=== PATIENT | male | born 1950 | race Caucasian/White ===

== ENCOUNTER 2017-05-22 03:57 | Emergency (ER) | payer OTHER ==
--- NOTE | 2017-05-22 08:00 | DIAGNOSTIC IMAGING REPORT ---
PROCEDURE: CT ABDOMEN/PELVIS W/O CONTRAST INDICATION: ABDOMINAL PAIN TECHNIQUE: Noncontrast axial images were obtained of the entire abdomen and pelvis with sagittal and coronal reformations. COMPARISON: None. FINDINGS: ABDOMEN: Mild right bibasilar scarring. Normal heart size. Coronary atherosclerosis. Liver, gallbladder, pancreas and spleen have a normal appearance. Severe atherosclerosis with a 4.2 cm infrarenal abdominal aortic aneurysm. Small ascites around the liver and spleen. Bilateral thickening of the adrenal glands. Small left renal cyst. Normal right kidney. No renal calculi or hydronephrosis. Nonspecific bowel gas pattern. PELVIS: Status post appendectomy. Mild sigmoid diverticulosis with mild adjacent inflammatory changes and small amount of extraluminal air. Enlarged prostate (5 cm) with central calcifications. Bladder wall thickening which may be due to decompression versus cystitis. Small ascites. 3.2 cm right common iliac 1.6 cm left internal iliac artery aneurysms. Severe calcific atherosclerosis. Severe L3-4 L5-S1 disc space narrowing. IMPRESSION: 1. Mild sigmoid diverticulosis with mild adjacent inflammatory changes and small amount of extraluminal air consistent with diverticulitis. There is no abscess. 2. Small ascites 3. 4.2 cm infrarenal abdominal aortic, 3.2 cm right common iliac and 1.6 cm left internal iliac artery aneurysms 4. Appendectomy 5. Enlarged prostate 6. Bladder wall thickening which may be due to decompression versus cystitis. Correlate clinically 7. Results discussed with Dr. Hurst All CT scans at this facility use dose modulation, iterative reconstruction, and/or weight-based dosing when appropriate to reduce radiation dose to as low as reasonably achievable.
--- NOTE | 2017-05-22 08:24 | ED NURSING NOTES ---
Clinical Report - Nurses [place] [facility] [address] [place] [address] 05/22/2017 3:58 Patient: LELE DUQUE TRIAGE Triage time 04:02. Acuity: LEVEL 4. Chief Complaint: ABDOMINAL PAIN and NAUSEA. Alert. --04:04 Shandra Jaffe R.N. 04:02 05/22/17. BP: 130/78. HR: 85. RR: 15. O2 saturation: 94% on room air. Temp: 99.1 F (oral). Pain level now: 06/08. --04:04 Shandra Jaffe R.N. Weight: 90.7 kg stated. Height/Length: 72 inches Per Patient. BMI: 27.1. --04:02 Shandra Jaffe R.N. Medications BusPIRone HCl Oral (Tablet 10 mg) 2 tablets, 2x a day. Carvedilol Oral (Tablet 25 mg) 2 tablets, twice daily. Lisinopril Oral 40 mg, daily. Lovastatin Oral 40mg, daily. Potassium Oral 10meq, 2x a day. --04:08 Shandra Jaffe R.N. Isosorbide Mononitrate Oral 30 mg, daily. --04:10 Shandra Jaffe R.N. Finasteride Oral (Tablet 5 mg) 1 tablet, daily. --04:11 Shandra Jaffe R.N. Vitamin D Oral (Capsule 1000 unit) 2 capsules, daily. --04:11 Shandra Jaffe R.N. Alfuzosin HCl ER Oral (Tablet Extended Release 24 Hour 10 mg) 1 tablet, daily. --04:12 Shandra Jaffe R.N. HydrALAZINE HCl Oral (Tablet 10 mg) 1 tablet, three times daily. --04:12 Shandra Jaffe R.N. Allergies Codeine. --04:08 Shandra Jaffe R.N. History Arrived by EMS. Historian: patient. Primary physician ([place] Josue Russell). Onset. (about 4 days ago (worse since last night)). 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 PAST MEDICAL HX: Immunizations: status is unknown. SOCIAL HX: Never smoker. History of drug use: marijuana. No alcohol use. --04:04 Shandra Jaffe R.N. No constipation. --04:06 Shandra Jaffe R.N. PROBLEMS: Prostatic Mass. Angina. Memory loss. Chronic Back Pain. Hyperlipidemia. PTSD. Hypertension. --04:03 Shandra Jaffe R.N. ADDITIONAL SURGERIES: Appendectomy. --04:03 Shandra Jaffe R.N. Interventions ID band on patient. To treatment room. --04:04 Shandra Jaffe R.N. PHYSICAL ASSESSMENT Ambulatory to room. Patient gowned. GENERAL / NEURO / PSYCH: Alert. Oriented X 4. Appears in no acute distress. RESPIRATORY: Respirations not labored. CVS: Capillary refill less than 2 seconds. SKIN: Skin is warm and dry. --04:04 Shandra Jaffe R.N. NURSING PROGRESS NOTES Head of bed elevated. Two patient identifiers checked. Call light placed in reach. Side rails up x 1. Bed placed in lowest position. Brakes of bed on. --04:05 Shadnra Jaffe R.N. Patient ready for evaluation- chart flagged. --04:05 Shandra Jaffe R.N. 04:05 05/22/2017 Site #1 started via IV in the left hand with an 20g angiocath; one attempt. Blood drawn: rainbow set. Labeled in the presence of the patient and sent to the lab. Saline lock flushed with 10 mL saline (Started by JOCELYNE Ramesh). --04:05 Shandra Jaffe R.N. 04:12 05/22/2017 Started bag #1 1000 mL IV Fluids IV NS (Saline); bolus of 500 mL over 30 minute(s) then at 125 mL/hr over 4 hour(s) via site #1 via IV pump. Allergies verified and confirmed 5 rights. IV patency established. IV site checked: no pain, redness, or swelling. IV flushed thoroughly pre- and post-medication administration. Completed per protocol. --04:12 Lulu Bacon R.N. ( urinal placed at bedside, sample requested. Pt states unable to go at this time, but aware of need.). --04:13 Shandar Jaffe R.N. 04:22 05/22/2017 Zofran (Ondansetron HCl) IVP 4 mg given over 2 minute(s) via site #1. Allergies verified and confirmed 5 rights. IV patency established. IV site checked: no pain, redness, or swelling. IV flushed thoroughly pre- and post-medication administration. IVP given by RN. --04:27 Lulu Bacon R.N. 04:31 05/22/2017 PROTONIX (Pantoprazole Sodium) IVP 80 mg given over 5 minute(s) via site #1. Allergies verified and confirmed 5 rights. IV patency established. IV site checked: no pain, redness, or swelling. IV flushed thoroughly pre- and post-medication administration. IVP given by RN. --04:31 Lulu Bacon R.N. 04:33 05/22/2017 Dilaudid (HYDROmorphone HCl PF) IVP 0.5 mg given over 2 minute(s) via site #1. Allergies verified, confirmed 5 rights and sedative warning given to the patient. IV patency established. IV site checked: no pain, redness, or swelling. IV flushed thoroughly pre- and post-medication administration. IVP given by RN. --04:33 Lulu Bacon R.N. ( pt still unable to urinate, IV rate increased, per EDMD.). --06:04 Shandra Jaffe R.N. 04:42 05/22/2017 IV Fluids IV NS via IV site #1 Rate Changed: bag #1 decreased to 125 mL/hr via IV pump. IV patency established. IV site checked: no pain, redness, or swelling. IV flushed thoroughly. --06:04 Shandra Jaffe R.N. 06:04 05/22/2017 IV Fluids IV NS via IV site #1 Rate Changed: bag #1 increased to 999 mL/hr via IV pump. IV patency established. IV site checked: no pain, redness, or swelling. IV flushed thoroughly. --06:05 Shandra Jaffe R.N. 06:35 05/22/2017 IV Fluids IV NS Discontinued: bag #1 completed. Total amount infused: 1000 mL. IV patency established. IV site checked: no pain, redness, or swelling. IV flushed thoroughly. --06:35 Shandra Jaffe R.N. Patient ID band checked for patient name and birthdate: patient confirmed urine collected with return of reyes-colored red-colored urine; sample sent to lab. Specimen labeled in the presence of the patient (collected and sent to lab by JOCELYNE Ramesh). --06:45 Shandra Jaffe R.N. 06:55. Patient transported to [place] by stretcher with tech. --06:55 Reyes Auguste, ER Tech1 0720. Care transferred and report received (received from Shandra CASANOVA). --07:50 Shefali Marques R.N. 08:25 05/22/17. BP: 131/75. HR: 67. RR: 18. O2 saturation: 97%. Temp: 98.2 F. 06:45 05/22/17. HR: 71. O2 saturation: 96%. 06:00 05/22/17. BP: 112/65. HR: 70. O2 saturation: 96%. 05:00 05/22/17. BP: 111/61. HR: 72. O2 saturation: 94%. 04:30 05/22/17. BP: 120/64. HR: 74. O2 saturation: 93%. 04:02 05/22/17. BP: 130/78. HR: 85. RR: 15. O2 saturation: 94% on room air. Temp: 99.1 F (oral). Pain level now: 06/08. --08:44 Shefali Marques R.N. DISPOSITION / DISCHARGE 08:40 05/22/2017 Site #1 removed upon discharge. Catheter intact. Pressure dressing applied. --08:45 Shefali Marques R.N. 08:25. Condition at departure: improved and stable. No learning barriers present. Discharge instructions provided and reviewed with the patient. Reviewed medication(s) dosing and course information. Prescription(s) given to the patient. Patient verbalized understanding. Written instructions provided in Finnish. The patient was discharged home and accompanied by family. He left the Emergency Department ambulatory and via private vehicle. Family member driving. --08:47 Shefali Marques R.N. 08:25 05/22/17. BP: 131/75. HR: 67. RR: 18. O2 saturation: 97%. Temp: 98.2 F. Pain level now 5/10. --08:47 Shefali Marques R.N. Locked/Released at 05/22/2017 9:23 by Shefali Marques R.N.
--- NOTE | 2017-05-22 08:24 | ED CLINICAL REPORT ---
Clinical Report - Physicians/Mid Levels [facility] [address] [place] [address] 05/22/2017 3:58 Patient: LELE DUQUE Time Seen: 04:01. Arrived- By ambulance. Historian- patient and EMS personnel. HISTORY OF PRESENT ILLNESS Chief Complaint: ABDOMINAL PAIN. This started about 4 days ago and is still present and now worse. It was gradual in onset and has been constant and waxing/waning. At its maximum, severity described as 10 / 10. When seen in the E.D., severity described as 7 / 10. It is described as sharp and it is described as located in the lower abdomen. The patient has had nausea and loss of appetite. He has had vomiting. The vomiting has occurred several times. No blood-tinged emesis or coffee-grounds emesis. REVIEW OF SYSTEMS The patient has had chills. All systems otherwise negative, except as recorded above. PAST HISTORY Primary physician (DOMINGO Russell). Medications: HydrALAZINE HCl Oral (Tablet 10 mg) 1 tablet, three times daily. Alfuzosin HCl ER Oral (Tablet Extended Release 24 Hour 10 mg) 1 tablet, daily. Vitamin D Oral (Capsule 1000 unit) 2 capsules, daily. Finasteride Oral (Tablet 5 mg) 1 tablet, daily. Isosorbide Mononitrate Oral 30 mg, daily. BusPIRone HCl Oral (Tablet 10 mg) 2 tablets, 2x a day. Carvedilol Oral (Tablet 25 mg) 2 tablets, twice daily. Lisinopril Oral 40 mg, daily. Lovastatin Oral 40mg, daily. Potassium Oral 10meq, 2x a day. Allergies: Codeine. SOCIAL HISTORY Never smoker. History of drug use: marijuana. No alcohol use. FAMILY HISTORY Denies family medical history. ADDITIONAL NOTES The nursing notes have been reviewed. PHYSICAL EXAM Vital Signs: 05/22/2017 04:02 BP: 130/78. HR: 85. RR: 15. O2 saturation: 94%. Temp: 99.1 F. Pain level now: 7/10. Have been reviewed. Appearance: Alert. Eyes: Pupils equal, round and reactive to light. ENT: Pharynx normal. Neck: Normal inspection. Neck supple. CVS: Normal heart rate and rhythm. Heart sounds normal. Respiratory: No respiratory distress. Decreased air movement. Abdomen: Soft. Moderate tenderness diffusely and in the left side of the abdomen. Bowel sounds normal. No organomegaly. No mass. Back: Normal inspection. No CVA tenderness. Skin: Skin warm and dry. Extremities: Extremities exhibit normal ROM. No calf tenderness. No lower extremity edema. LABS, X-RAYS, AND EKG Abdominal CT: IMPRESSION: 1. Mild sigmoid diverticulosis with mild adjacent inflammatory changes and small amount of extraluminal air consistent with diverticulitis. There is no abscess. 2. Small ascites 3. 4.2 cm infrarenal abdominal aortic, 3.2 cm right common iliac and 1.6 cm left internal iliac artery aneurysms 4. Appendectomy 5. Enlarged prostate 6. Bladder wall thickening which may be due to decompression versus cystitis. Correlate clinically. The study was interpreted contemporaneously by me and discussed with the radiologist. Laboratory Tests: UA-Culture if indicated: (BROOKE: 05/22/2017 06:35) ( [facility] 05/22/2017 07:06) Final results Test Result Flag Units (Reference) URINE COLOR YELLOW URINE APPEARANCE CLEAR URINE GLUCOSE NEGATIVE (NEGATIVE) URINE BILIRUBIN 1+ (NEGATIVE) URINE KETONE NEGATIVE (NEGATIVE) URINE SPECIFIC GRAVITY 1.020 (1.010-1.030) URINE PH 6.0 (5.0-8.0) URINE PROTEIN 2+ (NEGATIVE) URINE UROBILINOGEN 1.0 EU/dL (0.2-1.0) URINE NITRITE POSITIVE (NEGATIVE) URINE BLOOD TRACE-INTACT (NEGATIVE) URINE LEUK ESTERASE TRACE (NEGATIVE) URINE RBC NONE SEEN rbc/hpf (0-1) URINE WBC 10-15 wbc/hpf (0-1) URINE EPITHELIAL CELLS 0-1 EPI/hpf (0-5) URINE BACTERIA MODERATE (2+ TO 3+) (NONE SEEN) URINE COMMENT CULTURE INDICATED 1+ MUCOUSURINE CULTURES ARE SET-UP BASED ON THE FOLLOWING CRITERIA:POSITIVE NITRITEPOSITIVE LEUKOCYTE ESTERASEGREATER THAN 10 WHITE BLOOD CELLSMODERATE (2+) OR GREATER BACTERIA CBC w Diff: (BROOKE: 05/22/2017 04:10) ( [facility] 05/22/2017 06:04) Final results Test Result Flag Units (Reference) WHITE BLOOD COUNT 18.7 H K/uL (4.5-11.5) RED BLOOD COUNT 5.65 M/uL (4.50-5.90) HEMOGLOBIN 15.9 gm/dL (13.5-17.5) HEMATOCRIT 47.7 % (41.0-53.0) MEAN CELL VOLUME 84 fL (80-100) MEAN CORPUSCULAR HGB 28 pg (26-34) MEAN CORPUSCULAR HGB CONC 33 g/dL (31-37) RED CELL DISTRIBUTION WIDTH 14.0 % (11.6-14.8) PLATELET COUNT 201 K/uL (150-400) POLY % 76 H % (50-75) BAND % 13 H % (0-8) LYMPH 4 L % (25-40) MONO 5 % (3-14) EOSINOPHIL % 0 % (0-4) BASOPHIL % 0 % (0-2) METAMYELOCYTE % 0 % (0-1) MYELOCYTE 2 H % (0-1) OTHER CELL TYPE 0 Lactate, Serum: (BROOKE: 05/22/2017 04:10) ( [facility] 05/22/2017 05:28) Final results Test Result Flag Units (Reference) LACTIC ACID 1.5 mmol/L (0.4-2.0) CMP: (BROOKE: 05/22/2017 04:10) ( [facility] 05/22/2017 05:11) Final results Test Result Flag Units (Reference) GLUCOSE 135 H mg/dL (70-110) BUN 26 H mg/dL (7-18) CREATININE 1.7 H mg/dL (0.6-1.3) Estimated GFR 43.07 mL/min Estimated GFR- 52.20 mL/min Note: Persistent reduction over 3 months in eGFR<60 mL/min/1.73 m2 defines CKD. Patients with eGFR values>=60 mL/min/1.73 m2 may also have CKD if evidence ofpersistent proteinuria. Additional information may be foundat www.kidney.org. SODIUM 138 mmol/L (136-145) POTASSIUM 3.5 mmol/L (3.5-5.1) CHLORIDE 104 mmol/L (98-107) CARBON DIOXIDE 24 mmol/L (21-32) CALCIUM 8.7 mg/dL (8.5-10.1) TOTAL PROTEIN 6.4 g/dL (6.4-8.2) ALBUMIN 3.0 L g/dL (3.3-5.0) BILIRUBIN, TOTAL 2.2 H mg/dL (0.0-1.0) ALKALINE PHOSPHATASE 64 U/L (46-116) AST (SGOT) 28 U/L (15-37) ALT (SGPT) 28 U/L (12-78) LIPASE 147 U/L (73-393) AMYLASE 55 U/L (25-115) . PROGRESS AND PROCEDURES Course of Care: Patient is stable. Patient/family counseled. Old medical records reviewed. Disposition: Discharged. Condition: stable. CLINICAL IMPRESSION Acute diverticulitis. Acute urinary tract infection. INSTRUCTIONS No driving or operating machinery while taking medication. Sedative medication was given during your visit. Drink plenty of fluids. Warnings: Further evaluation is necessary. GENERAL WARNINGS: Return or contact your physician immediately if your condition worsens or changes unexpectedly, if not improving as expected, or if other problems arise. SPECIFICALLY, return for continued pain, fever, vomiting, inability to keep fluids down or blood in diarrhea; or if there is no improvement in the pain. Your Current Medications: CONTINUE TAKING THE FOLLOWING MEDICATIONS: Alfuzosin HCl ER Oral : Tablet Extended Release 24 Hour 10 mg, 1 tablet daily. BusPIRone HCl Oral : Tablet 10 mg, 2 tablets 2x a day. Carvedilol Oral : Tablet 25 mg, 2 tablets twice daily. Finasteride Oral : Tablet 5 mg, 1 tablet daily. HydrALAZINE HCl Oral : Tablet 10 mg, 1 tablet three times daily. Isosorbide Mononitrate Oral : 30 mg daily. Lisinopril Oral : 40 mg daily. Lovastatin Oral : 40mg daily. Potassium Oral : 10meq 2x a day. Vitamin D Oral : Capsule 1000 unit, 2 capsules daily. Prescription Medications: Hydrocodone/APAP 5mg/325mg: take 1 to 2 orally every 6 hours as needed for pain. Dispense fifteen (15). No refills. Cipro 500 mg: take 1 tab orally every 12 hours for 10 days. Dispense twenty (20). No refills. Substitution is permissible. Flagyl 500 mg: Take 1 tablet orally every 8 hours for 10 days. No refill. Substitution is permissible Follow-up: Follow up with your doctor Thursday in three days. Call for an appointment. Understanding of the discharge instructions verbalized by patient. (Electronically signed by Gaetano Hurst MD 05/22/2017 22:07)
--- NOTE | 2017-05-22 08:24 | ED NURSING NOTES ---
Clinical Report - Nurses [place] [facility] [address] [place] [address] 05/22/2017 3:58 Patient: LELE DUQUE TRIAGE Triage time 04:02. Acuity: LEVEL 4. Chief Complaint: ABDOMINAL PAIN and NAUSEA. Alert. --04:04 Shandra Jaffe R.N. 04:02 05/22/17. BP: 130/78. HR: 85. RR: 15. O2 saturation: 94% on room air. Temp: 99.1 F (oral). Pain level now: 06/08. --04:04 Shandra Jaffe R.N. Weight: 90.7 kg stated. Height/Length: 72 inches Per Patient. BMI: 27.1. --04:02 Shandra Jaffe R.N. Medications BusPIRone HCl Oral (Tablet 10 mg) 2 tablets, 2x a day. Carvedilol Oral (Tablet 25 mg) 2 tablets, twice daily. Lisinopril Oral 40 mg, daily. Lovastatin Oral 40mg, daily. Potassium Oral 10meq, 2x a day. --04:08 Shandra Jaffe R.N. Isosorbide Mononitrate Oral 30 mg, daily. --04:10 Shandra Jaffe R.N. Finasteride Oral (Tablet 5 mg) 1 tablet, daily. --04:11 Shandra Jaffe R.N. Vitamin D Oral (Capsule 1000 unit) 2 capsules, daily. --04:11 Shandra Jaffe R.N. Alfuzosin HCl ER Oral (Tablet Extended Release 24 Hour 10 mg) 1 tablet, daily. --04:12 Shandra Jaffe R.N. HydrALAZINE HCl Oral (Tablet 10 mg) 1 tablet, three times daily. --04:12 Shandra Jaffe R.N. Allergies Codeine. --04:08 Shandra Jaffe R.N. History Arrived by EMS. Historian: patient. Primary physician ([place] Josue Russell). Onset. (about 4 days ago (worse since last night)). 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 PAST MEDICAL HX: Immunizations: status is unknown. SOCIAL HX: Never smoker. History of drug use: marijuana. No alcohol use. --04:04 Shandra Jaffe R.N. No constipation. --04:06 Shandra Jaffe R.N. PROBLEMS: Prostatic Mass. Angina. Memory loss. Chronic Back Pain. Hyperlipidemia. PTSD. Hypertension. --04:03 Shandra Jaffe R.N. ADDITIONAL SURGERIES: Appendectomy. --04:03 Shandra Jaffe R.N. Interventions ID band on patient. To treatment room. --04:04 Shandra Jaffe R.N. PHYSICAL ASSESSMENT Ambulatory to room. Patient gowned. GENERAL / NEURO / PSYCH: Alert. Oriented X 4. Appears in no acute distress. RESPIRATORY: Respirations not labored. CVS: Capillary refill less than 2 seconds. SKIN: Skin is warm and dry. --04:04 Shandra Jaffe R.N. NURSING PROGRESS NOTES Head of bed elevated. Two patient identifiers checked. Call light placed in reach. Side rails up x 1. Bed placed in lowest position. Brakes of bed on. --04:05 Shandra Jaffe R.N. Patient ready for evaluation- chart flagged. --04:05 Shandra Jaffe R.N. 04:05 05/22/2017 Site #1 started via IV in the left hand with an 20g angiocath; one attempt. Blood drawn: rainbow set. Labeled in the presence of the patient and sent to the lab. Saline lock flushed with 10 mL saline (Started by JOCELYNE Ramesh). --04:05 Shandra Jaffe R.N. 04:12 05/22/2017 Started bag #1 1000 mL IV Fluids IV NS (Saline); bolus of 500 mL over 30 minute(s) then at 125 mL/hr over 4 hour(s) via site #1 via IV pump. Allergies verified and confirmed 5 rights. IV patency established. IV site checked: no pain, redness, or swelling. IV flushed thoroughly pre- and post-medication administration. Completed per protocol. --04:12 Lulu Bacon R.N. ( urinal placed at bedside, sample requested. Pt states unable to go at this time, but aware of need.). --04:13 Shandra Jaffe R.N. 04:22 05/22/2017 Zofran (Ondansetron HCl) IVP 4 mg given over 2 minute(s) via site #1. Allergies verified and confirmed 5 rights. IV patency established. IV site checked: no pain, redness, or swelling. IV flushed thoroughly pre- and post-medication administration. IVP given by RN. --04:27 Lulu Bacon R.N. 04:31 05/22/2017 PROTONIX (Pantoprazole Sodium) IVP 80 mg given over 5 minute(s) via site #1. Allergies verified and confirmed 5 rights. IV patency established. IV site checked: no pain, redness, or swelling. IV flushed thoroughly pre- and post-medication administration. IVP given by RN. --04:31 Lulu Bacon R.N. 04:33 05/22/2017 Dilaudid (HYDROmorphone HCl PF) IVP 0.5 mg given over 2 minute(s) via site #1. Allergies verified, confirmed 5 rights and sedative warning given to the patient. IV patency established. IV site checked: no pain, redness, or swelling. IV flushed thoroughly pre- and post-medication administration. IVP given by RN. --04:33 Lulu Bacon R.N. ( pt still unable to urinate, IV rate increased, per EDMD.). --06:04 Shandra Jaffe R.N. 04:42 05/22/2017 IV Fluids IV NS via IV site #1 Rate Changed: bag #1 decreased to 125 mL/hr via IV pump. IV patency established. IV site checked: no pain, redness, or swelling. IV flushed thoroughly. --06:04 Shandra Jaffe R.N. 06:04 05/22/2017 IV Fluids IV NS via IV site #1 Rate Changed: bag #1 increased to 999 mL/hr via IV pump. IV patency established. IV site checked: no pain, redness, or swelling. IV flushed thoroughly. --06:05 Shandra Jaffe R.N. 06:35 05/22/2017 IV Fluids IV NS Discontinued: bag #1 completed. Total amount infused: 1000 mL. IV patency established. IV site checked: no pain, redness, or swelling. IV flushed thoroughly. --06:35 Shandra Jaffe R.N. Patient ID band checked for patient name and birthdate: patient confirmed urine collected with return of reyes-colored red-colored urine; sample sent to lab. Specimen labeled in the presence of the patient (collected and sent to lab by JOCELYNE Ramesh). --06:45 Shandra Jaffe R.N. 06:55. Patient transported to [place] by stretcher with tech. --06:55 Reyes Auguste, ER Tech1 0720. Care transferred and report received (received from Shandra CASANOVA). --07:50 Shefali Marques R.N. 08:25 05/22/17. BP: 131/75. HR: 67. RR: 18. O2 saturation: 97%. Temp: 98.2 F. 06:45 05/22/17. HR: 71. O2 saturation: 96%. 06:00 05/22/17. BP: 112/65. HR: 70. O2 saturation: 96%. 05:00 05/22/17. BP: 111/61. HR: 72. O2 saturation: 94%. 04:30 05/22/17. BP: 120/64. HR: 74. O2 saturation: 93%. 04:02 05/22/17. BP: 130/78. HR: 85. RR: 15. O2 saturation: 94% on room air. Temp: 99.1 F (oral). Pain level now: 06/08. --08:44 Shefali Marques R.N. DISPOSITION / DISCHARGE 08:40 05/22/2017 Site #1 removed upon discharge. Catheter intact. Pressure dressing applied. --08:45 Shefali Marques R.N. 08:25. Condition at departure: improved and stable. No learning barriers present. Discharge instructions provided and reviewed with the patient. Reviewed medication(s) dosing and course information. Prescription(s) given to the patient. Patient verbalized understanding. Written instructions provided in Grenadian. The patient was discharged home and accompanied by family. He left the Emergency Department ambulatory and via private vehicle. Family member driving. --08:47 Shefali Marques R.N. 08:25 05/22/17. BP: 131/75. HR: 67. RR: 18. O2 saturation: 97%. Temp: 98.2 F. Pain level now 5/10. --08:47 Shefali Marques R.N. Locked/Released at 05/22/2017 9:23 by Shefali Marques R.N.
--- NOTE | 2017-05-22 08:24 | ED ORDER SUMMARY ---
..... Patient: LELE DUQUE OrderSheet [facility] VisitID: [id number] [place] [address] 66y, M Registration Date/Time: 05/22/2017 ORDER SHEET Weight: 90.7 kg (stated) Allergies: Codeine GENERAL ORDERS: CBC w Diff Urgent (04:02 05/22/2017 Darian FERGUSON) (Ack 4:04 AMcQuoid ER Tech1) (4:13 AMcQuoid ER Tech1) CMP Urgent (04:02 05/22/2017 Darian FERGUSON) (Ack 4:04 AMcQuoid ER Tech1) (4:13 AMcQuoid ER Tech1) UA-Culture if indicated Urgent (04:02 05/22/2017 Darian FERGUSON) (Ack 4:04 AMcQuoid ER Tech1) (6:44 RCollier R.N.) Amylase Urgent (04:02 05/22/2017 Darian FERGUSON) (Ack 4:04 AMcQuoid ER Tech1) (4:13 AMcQuoid ER Tech1) Lipase Urgent (04:02 05/22/2017 Darian FERGUSON) (Ack 4:04 AMcQuoid ER Tech1) (4:13 AMcQuoid ER Tech1) Blood Culture (No) (N/A) Urgent (04:08 05/22/2017 Darian FERGUSON) (Ack 4:13 AMcQuoid ER Tech1) (Collected 4:51 RMarsden R.N.) (4:51 AMcQuoid ER Tech1) Lactate, Serum Urgent (04:09 05/22/2017 Darian FERGUSON) (Ack 4:13 AMcQuoid ER Tech1) (Collected 4:51 RMarsden R.N.) (4:51 AMcQuoid ER Tech1) CT Abd/Pel w Cont (No) (See report) Urgent (06:46 05/22/2017 Darian FERGUSON) (6:47 Darian FERGUSON) (Cancelled: Other6:47 Darian FERGUSON) CT Abd/Pel wo Cont Urgent (06:47 05/22/2017 Darian FERGUSON) (Ack 6:54 AMcQuoid ER Tech1) (6:58 RCollier R.N.) MEDICATION ORDERS: IV FLUIDS: IV NS : initial bolus 500 mL (1000 mL/hr), then 125 mL/hr for 4h (NOW); Urgent (04:01 05/22/2017 Darian FERGUSON) (Ack 4:06 RCollier R.N.) (4:12 RMarsden R.N.) Zofran IV 4 mg (NOW) (04:07 05/22/2017 Darian FERGUSON) (Ack 4:14 RMarsden R.N.) (4:27 RMarsden R.N.) Protonix IVP 80mg 80 mg (Mix in NS 20ml over 4min) (04:08 05/22/2017 Darian FERGUSON) (Ack 4:14 RMarsden R.N.) (4:31 RMarsden R.N.) Dilaudid IV 0.5 mg (HIGH ALERT MEDICATION, NOW) (04:15 05/22/2017 Darian FERGUSON) (4:33 RMarsden R.N.) ORDER SHEET NOTES: [Electronically signed by Shefali Marques R.N. (09:05/22/2017)] [Electronically signed by Gaetano Hurst MD (22:07 05/22/2017)] [Electronically locked/signed by Shefali Marques R.N. (:05/22/2017)]
--- NOTE | 2017-05-22 08:24 | ED ORDER SUMMARY ---
..... Patient: LELE DUQUE OrderSheet [facility] VisitID: [id number] [place] [address] 66y, M Registration Date/Time: 05/22/2017 ORDER SHEET Weight: 90.7 kg (stated) Allergies: Codeine GENERAL ORDERS: CBC w Diff Urgent (04:02 05/22/2017 Darian FERGUSON) (Ack 4:04 AMcQuoid ER Tech1) (4:13 AMcQuoid ER Tech1) CMP Urgent (04:02 05/22/2017 Darian FERGUSON) (Ack 4:04 AMcQuoid ER Tech1) (4:13 AMcQuoid ER Tech1) UA-Culture if indicated Urgent (04:02 05/22/2017 Darian FERGUSON) (Ack 4:04 AMcQuoid ER Tech1) (6:44 RCollier R.N.) Amylase Urgent (04:02 05/22/2017 Darian FERGUSON) (Ack 4:04 AMcQuoid ER Tech1) (4:13 AMcQuoid ER Tech1) Lipase Urgent (04:02 05/22/2017 Darian FERGUSON) (Ack 4:04 AMcQuoid ER Tech1) (4:13 AMcQuoid ER Tech1) Blood Culture (No) (N/A) Urgent (04:08 05/22/2017 Darian FERGUSON) (Ack 4:13 AMcQuoid ER Tech1) (Collected 4:51 RMarsden R.N.) (4:51 AMcQuoid ER Tech1) Lactate, Serum Urgent (04:09 05/22/2017 Darian FERGUSON) (Ack 4:13 AMcQuoid ER Tech1) (Collected 4:51 RMarsden R.N.) (4:51 AMcQuoid ER Tech1) CT Abd/Pel w Cont (No) (See report) Urgent (06:46 05/22/2017 Darian FERGUSON) (6:47 Darian FERGUSON) (Cancelled: Other6:47 Darian FERGUSON) CT Abd/Pel wo Cont Urgent (06:47 05/22/2017 Darian FERGUSON) (Ack 6:54 AMcQuoid ER Tech1) (6:58 RCollier R.N.) MEDICATION ORDERS: IV FLUIDS: IV NS : initial bolus 500 mL (1000 mL/hr), then 125 mL/hr for 4h (NOW); Urgent (04:01 05/22/2017 Darian FERGUSON) (Ack 4:06 RCollier R.N.) (4:12 RMarsden R.N.) Zofran IV 4 mg (NOW) (04:07 05/22/2017 Darian FERGUSON) (Ack 4:14 RMarsden R.N.) (4:27 RMarsden R.N.) Protonix IVP 80mg 80 mg (Mix in NS 20ml over 4min) (04:08 05/22/2017 Darian FERGUSON) (Ack 4:14 RMarsden R.N.) (4:31 RMarsden R.N.) Dilaudid IV 0.5 mg (HIGH ALERT MEDICATION, NOW) (04:15 05/22/2017 Darian FERGUSON) (4:33 RMarsden R.N.) ORDER SHEET NOTES: [Electronically signed by Shefali Marques R.N. (09:05/22/2017)] [Electronically signed by Gaetano Hurst MD (22:07 05/22/2017)] [Electronically locked/signed by Shefali Marques R.N. (:05/22/2017)]
--- NOTE | 2017-05-22 22:07 | ED MAR SUMMARY ---
..... Medication Administration Record [facility] [address] [place] [address] Patient: LELE DUQUE Visit ID: [id number] 66y, M Weight: 90.7 kg Height/Length: 72 in BMI: 27.1 ALLERGIES: Codeine Start 04:12 05/22/2017 Lulu Bacon R.N., Stop 06:35 05/22/2017 Shandra Jaffe R.N. Medication Administered: IV NS (SALINE), Dose: IV Fluids over 4 hour(s), Rate: 125 mL/hr, Bolus: 500 mL over 30 minute(s), Dispensed: 1000 mL bag, Site: #1 left hand. Medication Ordered: IV NS : initial bolus 500 mL (1000 mL/hr), then 125 mL/hr for 4h (NOW); Urgent. Given 04:22 05/22/2017 Lulu Bacon R.N. Medication Administered: ZOFRAN [IVP] (ONDANSETRON HCL), Dose: 4 mg IVP over 2 minute(s), Site: #1 left hand. Medication Ordered: Zofran IV 4 mg (NOW). Given 04:31 05/22/2017 Lulu Bacon R.N. Medication Administered: PROTONIX [IVP] (PANTOPRAZOLE SODIUM), Dose: 80 mg IVP over 5 minute(s), Site: #1 left hand. Medication Ordered: Protonix IVP 80mg 80 mg (Mix in NS 20ml over 4min). Given 04:33 05/22/2017 Lulu Bacon R.N. Medication Administered: DILAUDID [IVP] (HYDROMORPHONE HCL PF), Dose: 0.5 mg IVP over 2 minute(s), Site: #1 left hand. Medication Ordered: Dilaudid IV 0.5 mg (HIGH ALERT MEDICATION, NOW).
--- NOTE | 2017-05-22 22:07 | ED MED RECONCILIATION SUMMARY ---
Patient: LELE DUQUE Medication Reconciliation Report [facility] VisitID: [id number] [place] [address] 66y, M Registration Date/Time: 05/22/2017 Weight: 90.7 kg Height/Length: 72 in. BMI: 27.1 ALLERGIES: Codeine The patient's Home Medications are listed below: CONTINUE TAKING THE FOLLOWING MEDICATIONS: Alfuzosin HCl ER Oral (10 mg) 1 tablet, daily BusPIRone HCl Oral (10 mg) 2 tablets, 2x a day Carvedilol Oral (25 mg) 2 tablets, twice daily Finasteride Oral (5 mg) 1 tablet, daily HydrALAZINE HCl Oral (10 mg) 1 tablet, three times daily Isosorbide Mononitrate Oral 30 mg, daily Lisinopril Oral 40 mg, daily Lovastatin Oral 40mg, daily Potassium Oral 10meq, 2x a day Vitamin D Oral (1000 unit) 2 capsules, daily The source(s) of the original Home Medication information: Not obtained. The following Medications were given to the patient in the Emergency Department: IV NS IV Fluids bolus 500 mL over 30 minute(s), then 125 mL/hr, administered: 05/22/2017 4:12:00 AM Zofran [IVP] IVP 4 mg, administered: 05/22/2017 4:22:00 AM PROTONIX [IVP] IVP 80 mg, administered: 05/22/2017 4:31:00 AM Dilaudid [IVP] IVP 0.5 mg, administered: 05/22/2017 4:33:00 AM The following Medications were prescribed to the patient: Hydrocodone/APAP 5mg/325mg: take 1 to 2 orally every 6 hours as needed for pain. Dispense fifteen (15). No refills. -- Gaetano Hurst MD Cipro 500 mg: take 1 tab orally every 12 hours for 10 days. Dispense twenty (20). No refills. Substitution is permissible. -- Gaetano Hurst MD Flagyl 500 mg: Take 1 tablet orally every 8 hours for 10 days. No refill. Substitution is permissible -- Gaetano Hurst MD
--- NOTE | 2017-05-22 22:07 | ED MED RECONCILIATION SUMMARY ---
Patient: LELE DUQUE Medication Reconciliation Report [facility] VisitID: [id number] [place] [address] 66y, M Registration Date/Time: 05/22/2017 Weight: 90.7 kg Height/Length: 72 in. BMI: 27.1 ALLERGIES: Codeine The patient's Home Medications are listed below: CONTINUE TAKING THE FOLLOWING MEDICATIONS: Alfuzosin HCl ER Oral (10 mg) 1 tablet, daily BusPIRone HCl Oral (10 mg) 2 tablets, 2x a day Carvedilol Oral (25 mg) 2 tablets, twice daily Finasteride Oral (5 mg) 1 tablet, daily HydrALAZINE HCl Oral (10 mg) 1 tablet, three times daily Isosorbide Mononitrate Oral 30 mg, daily Lisinopril Oral 40 mg, daily Lovastatin Oral 40mg, daily Potassium Oral 10meq, 2x a day Vitamin D Oral (1000 unit) 2 capsules, daily The source(s) of the original Home Medication information: Not obtained. The following Medications were given to the patient in the Emergency Department: IV NS IV Fluids bolus 500 mL over 30 minute(s), then 125 mL/hr, administered: 05/22/2017 4:12:00 AM Zofran [IVP] IVP 4 mg, administered: 05/22/2017 4:22:00 AM PROTONIX [IVP] IVP 80 mg, administered: 05/22/2017 4:31:00 AM Dilaudid [IVP] IVP 0.5 mg, administered: 05/22/2017 4:33:00 AM The following Medications were prescribed to the patient: Hydrocodone/APAP 5mg/325mg: take 1 to 2 orally every 6 hours as needed for pain. Dispense fifteen (15). No refills. -- Gaetano Hurst MD Cipro 500 mg: take 1 tab orally every 12 hours for 10 days. Dispense twenty (20). No refills. Substitution is permissible. -- Gaetano Hurst MD Flagyl 500 mg: Take 1 tablet orally every 8 hours for 10 days. No refill. Substitution is permissible -- Gaetano Hurst MD
--- NOTE | 2017-05-22 22:07 | ED MAR SUMMARY ---
..... Medication Administration Record [facility] [address] [address] Patient: LELE DUQUE Visit ID: [id number] 66y, M Weight: 90.7 kg Height/Length: 72 in BMI: 27.1 ALLERGIES: Codeine Start 04:12 05/22/2017 Lulu Bacon R.N., Stop 06:35 05/22/2017 Shandra Jaffe R.N. Medication Administered: IV NS (SALINE), Dose: IV Fluids over 4 hour(s), Rate: 125 mL/hr, Bolus: 500 mL over 30 minute(s), Dispensed: 1000 mL bag, Site: #1 left hand. Medication Ordered: IV NS : initial bolus 500 mL (1000 mL/hr), then 125 mL/hr for 4h (NOW); Urgent. Given 04:22 05/22/2017 Lulu Bacon R.N. Medication Administered: ZOFRAN [IVP] (ONDANSETRON HCL), Dose: 4 mg IVP over 2 minute(s), Site: #1 left hand. Medication Ordered: Zofran IV 4 mg (NOW). Given 04:31 05/22/2017 Lulu Bacon R.N. Medication Administered: PROTONIX [IVP] (PANTOPRAZOLE SODIUM), Dose: 80 mg IVP over 5 minute(s), Site: #1 left hand. Medication Ordered: Protonix IVP 80mg 80 mg (Mix in NS 20ml over 4min). Given 04:33 05/22/2017 Lulu Bacon R.N. Medication Administered: DILAUDID [IVP] (HYDROMORPHONE HCL PF), Dose: 0.5 mg IVP over 2 minute(s), Site: #1 left hand. Medication Ordered: Dilaudid IV 0.5 mg (HIGH ALERT MEDICATION, NOW).
--- NOTE | 2017-05-22 22:07 | ED DISCHARGE INSTRUCTIONS ---
Patient: LELE DUQUE General Instructions [facility] VisitID: [id number] [place] [address] 66y, M Registration Date/Time: 05/22/2017 Acute diverticulitis. Acute urinary tract infection. INSTRUCTIONS No driving or operating machinery while taking medication. Sedative medication was given during your visit. Drink plenty of fluids. Warnings: Further evaluation is necessary. GENERAL WARNINGS: Return or contact your physician immediately if your condition worsens or changes unexpectedly, if not improving as expected, or if other problems arise. SPECIFICALLY, return for continued pain, fever, vomiting, inability to keep fluids down or blood in diarrhea; or if there is no improvement in the pain. Your Current Medications: CONTINUE TAKING THE FOLLOWING MEDICATIONS: Alfuzosin HCl ER Oral : Tablet Extended Release 24 Hour 10 mg, 1 tablet daily. BusPIRone HCl Oral : Tablet 10 mg, 2 tablets 2x a day. Carvedilol Oral : Tablet 25 mg, 2 tablets twice daily. Finasteride Oral : Tablet 5 mg, 1 tablet daily. HydrALAZINE HCl Oral : Tablet 10 mg, 1 tablet three times daily. Isosorbide Mononitrate Oral : 30 mg daily. Lisinopril Oral : 40 mg daily. Lovastatin Oral : 40mg daily. Potassium Oral : 10meq 2x a day. Vitamin D Oral : Capsule 1000 unit, 2 capsules daily. Prescription Medications: Hydrocodone/APAP 5mg/325mg: take 1 to 2 orally every 6 hours as needed for pain. Dispense fifteen (15). No refills. Cipro 500 mg: take 1 tab orally every 12 hours for 10 days. Dispense twenty (20). No refills. Substitution is permissible. Flagyl 500 mg: Take 1 tablet orally every 8 hours for 10 days. No refill. Substitution is permissible Follow-up: Follow up with your doctor Thursday in three days. Call for an appointment. Understanding of the discharge instructions verbalized by patient. ADDITIONAL INFORMATION Diverticulitis Some people develop pouches along the wall of the colon as they get older. The pouches,called diverticuli, usually cause no symptoms. If the pouches become blocked, an infection may occur known as diverticulitis. This causes lower abdominal pain and fever. If not treated, it can become a serious condition, causing an abscess to form inside the pouch. The abscess may block the instestinal tract even or rupture, spreading infection throughout the abdomen. When treatment is started early, oral antibiotics alone may be enough to cure diverticulitis. This method is tried first. However, if you do not improve or if your condition worsens while you are trying oral antibiotics, it will be necessary to admit you to the hospital for IV antibiotics. Severe cases may require surgery. Home care The following guidelines will help you care for your diverticulitis at home: During the acute illness, rest and follow a low-fiber diet: Foods to Include: flake cereal, mashed potatoes, pancakes, waffles, pasta, white bread, rice, applesauce, bananas, eggs, meat, fish, poultry, tofu, cooked vegetables. Take antibiotics exactly as directed. Do not miss any doses or stop taking the medication, even if you feel better. Monitor your temperature and report any rising temperature to your doctor. Preventing future attacks Once you have had an episode of diverticulitis, you are at risk of having a recurrence. After you have recovered from this episode, you may be able to reduce your risk by eating a high-fiber diet (2035 gm/day of fiber). This cleans out the colon pouches that already exist and prevent new ones from forming. Foods high in fiber includes fresh fruits and edible peelings, raw or lightly cooked vegetables, whole grain cereals and breads, dried beans and peas, bran. Follow-up care Follow up with your doctor as advised or sooner if you are not improving in the nexttwo days. When to seek medical care Get prompt medical attention if any of the following occur: Fever of 100.4F (38C) or higher, or as directed by your health care provider Repeated vomiting or swelling of the abdomen Weakness, dizziness, light-headedness Increasing abdominal pain that becomes severe or spreads to your back Pain that moves to the right lower abdomen Rectal bleeding (red, black or maroon color of the stools) Unexpected vaginal bleeding Bladder Infection,Male (Adult) A bladder infection ("cystitis" or "UTI") usually causes a constant urge to urinate, and a burning when passing urine. Urine may be cloudy, smelly or dark. There may be also be pain in the lower abdomen. Cystitis in males is not common. It may be caused by a partial blockage in the urinary system that keeps the bladder from emptying completely. This is most often related to an enlarged prostate gland. Home Care: Drink lots of fluids (at least 6-8 glasses a day). This will flush the bacteria out of your bladder. Avoid sexual intercourse until your symptoms are gone. Avoid caffeine, alcohol, and spicy foods. They could irritate the bladder. A bladder infection is treated with antibiotics. You may also be given Pyridium (generic - phenazopyridine) to reduce burning with urination. This will cause urine to become a bright orange color, which can stain clothing. Follow Up with your doctor or this facility if ALL symptoms have not cleared within five days. It is important to keep your follow up appointment to discuss with your doctor the need for further tests of the urinary tract. Get Prompt Medical Attention if any of the following occur: Fever of 100.4F (38C) or higher, or as directed by your healthcare provider No improvement by the third day of treatment Increasing back or abdominal pain Repeated vomiting; unable to keep medicine down Weakness, dizziness or fainting Hydrocodone Bitartrate, Acetaminophen Oral tablet What is this medicine? ACETAMINOPHEN; HYDROCODONE (a set a FELIZ minesh fen; jesus droe KOE done) is a pain reliever. It is used to treat mild to moderate pain. How should I use this medicine? Take this medicine by mouth. Swallow it with a full glass of water. Follow the directions on the prescription label. If the medicine upsets your stomach, take the medicine with food or milk. Do not take more than you are told to take. Talk to your mason helper regarding the use of this medicine in children. This medicine is not approved for use in children. What side effects may I notice from receiving this medicine? Side effects that you should report to your doctor or health hospice care transitions coordinator as soon as possible: allergic reactions like skin rash, itching or hives, swelling of the face, lips, or tongue breathing problems confusion feeling faint or lightheaded, falls stomach pain yellowing of the eyes or skin Side effects that usually do not require medical attention (report to your doctor or health hospice care transitions coordinator if they continue or are bothersome): nausea, vomiting stomach upset What may interact with this medicine? alcohol antihistamines isoniazid medicines for depression, anxiety, or psychotic disturbances medicines for sleep muscle relaxants naltrexone narcotic medicines (opiates) for pain phenobarbital ritonavir tramadol What if I miss a dose? If you miss a dose, take it as soon as you can. If it is almost time for your next dose, take only that dose. Do not take double or extra doses. Where should I keep my medicine? Keep out of the reach of children. This medicine can be abused. Keep your medicine in a safe place to protect it from theft. Do not share this medicine with anyone. Selling or giving away this medicine is dangerous and against the law. Store at room temperature between 15 and 30 degrees C (59 and 86 degrees F). Protect from light. Keep container tightly closed. Throw away any unused medicine after the expiration date. Discard unused medicine and used packaging carefully. Pets and children can be harmed if they find used or lost packages. What should I tell my health care provider before I take this medicine? They need to know if you have any of these conditions: brain tumor Crohn's disease, inflammatory bowel disease, or ulcerative colitis drink more than 3 alcohol-containing drinks per day drug abuse or addiction head injury heart or circulation problems kidney disease or problems going to the bathroom liver disease lung disease, asthma, or breathing problems an unusual or allergic reaction to acetaminophen, hydrocodone, other opioid analgesics, other medicines, foods, dyes, or preservatives or trying to get breast-feeding What should I watch for while using this medicine? Tell your doctor or health hospice care transitions coordinator if your pain does not go away, if it gets worse, or if you have new or a different type of pain. You may develop tolerance to the medicine. Tolerance means that you will need a higher dose of the medicine for pain relief. Tolerance is normal and is expected if you take the medicine for a long time. Do not suddenly stop taking your medicine because you may develop a severe reaction. Your body becomes used to the medicine. This does NOT mean you are addicted. Addiction is a behavior related to getting and using a drug for a non-medical reason. If you have pain, you have a medical reason to take pain medicine. Your doctor will tell you how much medicine to take. If your doctor wants you to stop the medicine, the dose will be slowly lowered over time to avoid any side effects. You may get drowsy or dizzy when you first start taking the medicine or change doses. Do not drive, use machinery, or do anything that may be dangerous until you know how the medicine affects you. Stand or sit up slowly. There are different types of narcotic medicines (opiates) for pain. If you take more than one type at the same time, you may have more side effects. Give your health care provider a list of all medicines you use. Your doctor will tell you how much medicine to take. Do not take more medicine than directed. Call emergency for help if you have problems breathing. The medicine will cause constipation. Try to have a bowel movement at least every 2 to 3 days. If you do not have a bowel movement for 3 days, call your doctor or health hospice care transitions coordinator. Too much acetaminophen can be very dangerous. Do not take Tylenol (acetaminophen) or medicines that contain acetaminophen with this medicine. Many non-prescription medicines contain acetaminophen. Always read the labels carefully. Ciprofloxacin Hydrochloride Oral tablet What is this medicine? CIPROFLOXACIN (sip fozia FLOX a sin) is a quinolone antibiotic. It is used to treat certain kinds of bacterial infections. It will not work for colds, flu, or other viral infections. How should I use this medicine? Take this medicine by mouth with a glass of water. Follow the directions on the prescription label. Take your medicine at regular intervals. Do not take your medicine more often than directed. Take all of your medicine as directed even if you think your are better. Do not skip doses or stop your medicine early. You can take this medicine with food or on an empty stomach. It can be taken with a meal that contains dairy or calcium, but do not take it alone with a dairy product, like milk or yogurt or calcium-fortified juice. A special MedGuide will be given to you by the pharmacist with each prescription and refill. Be sure to read this information carefully each time. Talk to your mason helper regarding the use of this medicine in children. Special care may be needed. What side effects may I notice from receiving this medicine? Side effects that you should report to your doctor or health hospice care transitions coordinator as soon as possible: - allergic reactions like skin rash, itching or hives, swelling of the face, lips, or tongue - breathing problems - confusion, nightmares or hallucinations - feeling faint or lightheaded, falls - irregular heartbeat - joint, muscle or tendon pain or swelling - pain or trouble passing urine -persistent headache with or without blurred vision - redness, blistering, peeling or loosening of the skin, including inside the mouth - seizure - unusual pain, numbness, tingling, or weakness Side effects that usually do not require medical attention (report to your doctor or health hospice care transitions coordinator if they continue or are bothersome): - diarrhea - nausea or stomach upset - white patches or sores in the mouth What may interact with this medicine? Do not take this medicine with any of the following medications: cisapride droperidol terfenadine tizanidine This medicine may also interact with the following medications: antacids caffeine cyclosporin didanosine (ddI) buffered tablets or powder medicines for diabetes medicines for inflammation like ibuprofen, naproxen methotrexate multivitamins omeprazole phenytoin probenecid sucralfate theophylline warfarin What if I miss a dose? If you miss a dose, take it as soon as you can. If it is almost time for your next dose, take only that dose. Do not take double or extra doses. Where should I keep my medicine? Keep out of the reach of children. Store at room temperature below 30 degrees C (86 degrees F). Keep container tightly closed. Throw away any unused medicine after the expiration date. What should I tell my health care provider before I take this medicine? They need to know if you have any of these conditions: -bone problems -cerebral disease -joint problems -irregular heartbeat -kidney disease -liver disease -myasthenia gravis -seizure disorder -tendon problems -an unusual or allergic reaction to ciprofloxacin, other antibiotics or medicines, foods, dyes, or preservatives - or trying to get -breast-feeding What should I watch for while using this medicine? Tell your doctor or health hospice care transitions coordinator if your symptoms do not improve. Do not treat diarrhea with over the counter products. Contact your doctor if you have diarrhea that lasts more than 2 days or if it is severe and watery. You may get drowsy or dizzy. Do not drive, use machinery, or do anything that needs mental alertness until you know how this medicine affects you. Do not stand or sit up quickly, especially if you are an older patient. This reduces the risk of dizzy or fainting spells. This medicine can make you more sensitive to the sun. Keep out of the sun. If you cannot avoid being in the sun, wear protective clothing and use sunscreen. Do not use sun lamps or tanning beds/booths. Avoid antacids, aluminum, calcium, iron, magnesium, and zinc products for 6 hours before and 2 hours after taking a dose of this medicine. Metronidazole Oral tablet What is this medicine? METRONIDAZOLE (me trocatherine NI da zole) is an antiinfective. It is used to treat certain kinds of bacterial and protozoal infections. It will not work for colds, flu, or other viral infections. How should I use this medicine? Take this medicine by mouth with a full glass of water. Follow the directions on the prescription label. Take your medicine at regular intervals. Do not take your medicine more often than directed. Take all of your medicine as directed even if you think you are better. Do not skip doses or stop your medicine early. Talk to your mason helper regarding the use of this medicine in children. Special care may be needed. What side effects may I notice from receiving this medicine? Side effects that you should report to your doctor or health hospice care transitions coordinator as soon as possible: allergic reactions like skin rash or hives, swelling of the face, lips, or tongue confusion, clumsiness difficulty speaking discolored or sore mouth dizziness fever, infection numbness, tingling, pain or weakness in the hands or feet trouble passing urine or change in the amount of urine redness, blistering, peeling or loosening of the skin, including inside the mouth seizures unusually weak or tired vaginal irritation, dryness, or discharge Side effects that usually do not require medical attention (report to your doctor or health hospice care transitions coordinator if they continue or are bothersome): diarrhea headache irritability metallic taste nausea stomach pain or cramps trouble sleeping What may interact with this medicine? Do not take this medicine with any of the following medications: alcohol or any product that contains alcohol amprenavir oral solution cisapride disulfiram dofetilide dronedarone paclitaxel injection pimozide ritonavir oral solution sertraline oral solution sulfamethoxazole-trimethoprim injection thioridazine ziprasidone This medicine may also interact with the following medications: cimetidine lithium other medicines that prolong the QT interval (cause an abnormal heart rhythm) phenobarbital phenytoin warfarin What if I miss a dose? If you miss a dose, take it as soon as you can. If it is almost time for your next dose, take only that dose. Do not take double or extra doses. Where should I keep my medicine? Keep out of the reach of children. Store at room temperature below 25 degrees C (77 degrees F). Protect from light. Keep container tightly closed. Throw away any unused medicine after the expiration date. What should I tell my health care provider before I take this medicine? They need to know if you have any of these conditions: anemia or other blood disorders disease of the nervous system fungal or yeast infection if you drink alcohol containing drinks liver disease seizures an unusual or allergic reaction to metronidazole, or other medicines, foods, dyes, or preservatives or trying to get breast-feeding What should I watch for while using this medicine? Tell your doctor or health hospice care transitions coordinator if your symptoms do not improve or if they get worse. You may get drowsy or dizzy. Do not drive, use machinery, or do anything that needs mental alertness until you know how this medicine affects you. Do not stand or sit up quickly, especially if you are an older patient. This reduces the risk of dizzy or fainting spells. Avoid alcoholic drinks while you are taking this medicine and for three days afterward. Alcohol may make you feel dizzy, sick, or flushed. If you are being treated for a sexually transmitted disease, avoid sexual contact until you have finished your treatment. Your sexual partner may also need treatment. You have been given the following additional information: Diverticulitis Bladder Infection, Male (Adult) Hydrocodone Bitartrate, Acetaminophen Oral tablet Ciprofloxacin Hydrochloride Oral tablet Metronidazole Oral tablet No driving or operating machinery while taking medication. Sedative medication was given during your visit. (Electronically signed by Gaetano Hurst MD 05/22/2017 22:07)
== END 2017-05-22 09:15 | disposition home or self-care (01) ==
LOC: ED SRH 03:57
DX: K57.92 Diverticulitis of intestine, part unspecified, without perforation or abscess without bleeding (principal); N39.0 Urinary tract infection, site not specified; E78.5 Hyperlipidemia, unspecified; I10 Essential (primary) hypertension; Z79.899 Other long term (current) drug therapy; Z88.5 Allergy status to narcotic agent
CPT/HCPCS: 90004; 90065; 90100; 90469; 91643; 92031; 92235; 92530; 95059

== ENCOUNTER 2017-06-08 06:59 | Emergency (ER) | payer OTHER ==
--- NOTE | 2017-06-08 07:58 | ED NURSING NOTES ---
Clinical Report - Nurses [facility] [address] [place] [address] 06/08/2017 6:58 Patient: LELE DUQUE TRIAGE Triage time 07:05. Acuity: LEVEL 4. Chief Complaint: URINARY RETENTION. 07:05 06/08/17. 07:06/08/17. Alert. No acute distress. --07:08 Noah Mancilla R.N. 07:06/08/17. BP: 157/105. HR: 69. RR: 20. O2 saturation: 100% on room air. Temp: 98.3 F (oral). Pain level now: 03/09. --07:08 Noah Mancilla R.N. Weight: 81.6 kg stated. Height/Length: 72 inches Per Patient. BMI: 24.4. --07:05 Noah Mancilla R.N. Medications Alfuzosin HCl ER Oral (Tablet Extended Release 24 Hour 10 mg) 1 tablet, daily. BusPIRone HCl Oral (Tablet 10 mg) 2 tablets, 2x a day. Carvedilol Oral (Tablet 25 mg) 2 tablets, twice daily. Finasteride Oral (Tablet 5 mg) 1 tablet, daily. HydrALAZINE HCl Oral (Tablet 10 mg) 1 tablet, three times daily. Isosorbide Mononitrate Oral 30 mg, daily. Lisinopril Oral 40 mg, daily. Lovastatin Oral 40mg, daily. Potassium Oral 10meq, 2x a day. Vitamin D Oral (Capsule 1000 unit) 2 capsules, daily. --07:07 Noah Mancilla R.N. Medication/allergy information source: the patient and patient's family. --07:08 Noah Mancilla R.N. Allergies Codeine. --07:07 Noah Mancilla R.N. History Arrived by private vehicle. Historian: patient. Accompanied by family. [facility] ([facility]). 07:05 06/08/17. ( 2-3 days ago). No discomfort with urination. Treatment DONOR SERVICES COORDINATOR: None. PAST MEDICAL HX: Immunizations not up to date. SOCIAL HX: Never smoker. History of drug use: marijuana. No alcohol use. No infectious disease exposure. ABUSE ASSESSMENT: No report of abuse. FALL RISK ASSESSMENT: Fall risk assessment completed. No fall risk identified. NUTRITIONAL RISK ASSESSMENT: The nutritional risk assessment revealed no deficiencies. FUNCTIONAL ASSESSMENT: Functional assessment: no impairments noted. LEARNING NEEDS ASSESSMENT: The learning needs assessment revealed no barriers. SKIN INTEGRITY ASSESSMENT: Skin integrity risk assessment completed. No skin integrity risk identified. --07:08 Noah Mancilla R.N. PROBLEMS: UTI - Urinary Tract Infection. Diverticulitis. Prostatic Mass. Tetanus Status. Anxiety Reaction. Angina. Dyspnea. Abnormal Test. Chronic Back Pain. Hyperlipidemia. PTSD. Immunizations. Hypertension. --07:08 Noah Mancilla R.N. Memory loss [Inactive]. --07:08 Noah Mancilla R.N. ADDITIONAL SURGERIES: Appendectomy. --07:08 Noah Mancilla R.N. Assessment 07:06/08/17. --07:08 Noah Mancilla R.N. Interventions 07:06/08/17. 07:06/08/17. ID and allergy band on patient. To treatment room. --07:08 Noah Mancilla R.N. PHYSICAL ASSESSMENT 07:06/08/17. Ambulatory to room. GENERAL / NEURO / PSYCH: Alert. Oriented X 4. RESPIRATORY: Respirations not labored. CVS: Capillary refill less than 2 seconds. SKIN: Skin is warm and dry. --07:08 Noah Mancilla R.N. NURSING PROGRESS NOTES 07:06/08/17. The plan of care for this patient has been created. Patient gowned. Head of bed elevated. Reassurance given. Two patient identifiers checked. Call light placed in reach. Side rails up x 2. Bed placed in lowest position. Brakes of bed on. --07:09 Noah Mancilla R.N. 07:06/08/17. Patient ready for evaluation- chart flagged and notification provided. --07:09 Noah Mancilla R.N. 07:10 06/08/17. ( Pt void 15 mLs). --07:10 Noah Mancilla R.N. 07:10 06/08/17. Patient ID band checked for patient name and birthdate: patient confirmed. Clean catch urine collected with return of reyes-colored urine; sample sent to lab for urinalysis and culture. Specimen labeled in the presence of the patient. --07:10 Noah Mancilla R.N. 07:25 06/08/17. ( Bladder scan 10 mLs by tech). --07:25 Noah Mancilla R.N. 07:47 06/08/17. Patient and family informed about reason for wait and about plan of care. --07:48 Noah Mancilla R.N. 07:48 06/08/17. ( MD sales completed). --07:48 Noah Mancilla R.N. 07:57 06/08/2017 Levofloxacin PO Tablets 500 mg given. Allergies verified and confirmed 5 rights. --07:57 Terry Garcia R.N. DISPOSITION / DISCHARGE 08:10. Departure time: 0804. Condition at departure: unchanged and stable. The goals identified in the patient's plan of care were met. No learning barriers present. Discharge instructions provided and reviewed with the patient and spouse. Reviewed medication(s) side effects, precautions, dosing and course information. Prescription(s) given to the patient. Reviewed referral to a primary care physician for followup. Patient and spouse verbalized understanding. Written instructions provided in [place]. The patient was discharged by the physician. He was discharged home and accompanied by spouse. He left the Emergency Department ambulatory and via private vehicle. Spouse driving. --08:10 Terry Garcia R.N. 08:04 06/08/17. BP: 163/92. HR: 64. RR: 16. O2 saturation: 96% on room air. Temp: 98.4 F. Pain level now: 0. --08:10 Terry Garcia R.N. Locked/Released at 06/08/2017 8:13 by Terry Garcia R.N.
--- NOTE | 2017-06-08 07:58 | ED ORDER SUMMARY ---
..... Patient: LELE DUQUE OrderSheet [facility] VisitID: [id number] [address] [place] [address] 67y, M Registration Date/Time: 06/08/2017 ORDER SHEET Weight: 81.6 kg (stated) Allergies: Codeine GENERAL ORDERS: UA-Culture if indicated Urgent (07:09 06/08/2017 JBoardley R.N. per protocol) (Ack 7:12 Adelaida ER Electrical And Instrumentation Mechanic) (7:14 JBoardley R.N.) Bladder Scan (07:09 06/08/2017 JBoardley R.N. per protocol) (7:22 Emmanuel ER Tech1) MEDICATION ORDERS: Levofloxacin PO 500 mg (NOW) (07:52 06/08/2017 Willy Cordero) (Ack 7:52 IJurca R.N.) (7:57 IJurca R.N.) IV FLUIDS: ORDER SHEET NOTES: [Electronically signed by Guillermo Ring Dr. (07:54 06/08/2017)] [Electronically signed by Terry Garcia R.N. (08:13 06/08/2017)] [Electronically locked/signed by Terry Garcia R.N. (08:13 06/08/2017)]
--- NOTE | 2017-06-08 07:58 | ED ORDER SUMMARY ---
..... Patient: LELE DUQUE OrderSheet [facility] VisitID: [id number] [address] [place] [address] 67y, M Registration Date/Time: 06/08/2017 ORDER SHEET Weight: 81.6 kg (stated) Allergies: Codeine GENERAL ORDERS: UA-Culture if indicated Urgent (07:09 06/08/2017 JBoardley R.N. per protocol) (Ack 7:12 Adelaida ER Watch Inspector Final Movement) (7:14 JBoardley R.N.) Bladder Scan (07:09 06/08/2017 JBoardley R.N. per protocol) (7:22 Emmanuel ER Tech1) MEDICATION ORDERS: Levofloxacin PO 500 mg (NOW) (07:52 06/08/2017 Willy Cordero) (Ack 7:52 IJurca R.N.) (7:57 IJurca R.N.) IV FLUIDS: ORDER SHEET NOTES: [Electronically signed by Guillermo Ring Dr. (07:54 06/08/2017)] [Electronically signed by Terry Garcia R.N. (08:13 06/08/2017)] [Electronically locked/signed by Terry Garcia R.N. (08:13 06/08/2017)]
--- NOTE | 2017-06-08 07:58 | ED CLINICAL REPORT ---
Clinical Report - Physicians/Mid Levels [facility] [address] [place] [address] 06/08/2017 6:58 Patient: LELE DUQUE Time Seen: 07:24; initial patient contact. Arrived- By private vehicle. Historian- patient. HISTORY OF PRESENT ILLNESS Chief Complaint: URINARY RETENTION. This started about 2 days ago and is still present. The problem is described as mild. It was gradual in onset. No penile discharge, discomfort with urination, urinary frequency or urgency of urination. He has been voiding small amounts. Sexual history is noncontributory. Similar symptoms previously: None. Recent medical care: Not recently seen/assessed. REVIEW OF SYSTEMS No fever, chills, abdominal pain, vomiting or diarrhea. All systems otherwise negative, except as recorded above. PAST HISTORY ( UTI - Urinary Tract Infection. Diverticulitis. Prostatic Mass. Tetanus Status. Anxiety Reaction. Angina. Dyspnea. Abnormal Test. Chronic Back Pain. Hyperlipidemia. PTSD. Hypertension. Memory loss ADDITIONAL SURGERIES: Appendectomy). SOCIAL HISTORY Never smoker. History of occasional drug use: marijuana. ADDITIONAL NOTES The nursing notes have been reviewed. PHYSICAL EXAM Vital Signs: 06/08/2017 07:05 BP: 157/105. HR: 69. RR: 20. O2 saturation: 100%. Temp: 98.3 F. Pain level now: 4/10. Have been reviewed. Hypertensive. Heart rate normal. Respiratory rate normal. Temperature normal. Oxygen saturation normal. Appearance: Alert. Oriented X3. No acute distress. ENT: Pharynx normal. Abdomen: Soft and nontender. Bowel sounds normal. No organomegaly. No mass. Rectal: Abnormal digital exam: enlarged prostate. No tenderness. No prostatic nodule. No tenderness upon palpation of the prostate. Rectal exam nontender. Skin: Skin warm and dry. Normal skin color. Neuro: Oriented X 3. LABS, X-RAYS, AND EKG Laboratory Tests: UA-Culture if indicated: (BROOKE: 06/08/2017 07:00) ( MsgRcvd 06/08/2017 07:45) Final results Test Result Flag Units (Reference) URINE COLOR YELLOW URINE APPEARANCE CLEAR URINE GLUCOSE NEGATIVE (NEGATIVE) URINE BILIRUBIN NEGATIVE (NEGATIVE) URINE KETONE NEGATIVE (NEGATIVE) URINE SPECIFIC GRAVITY 1.015 (1.010-1.030) URINE PH 6.0 (5.0-8.0) URINE PROTEIN NEGATIVE (NEGATIVE) URINE UROBILINOGEN 0.2 EU/dL (0.2-1.0) URINE NITRITE NEGATIVE (NEGATIVE) URINE BLOOD NEGATIVE (NEGATIVE) URINE LEUK ESTERASE POSITIVE (NEGATIVE) URINE RBC 0-1 rbc/hpf (0-1) URINE WBC 3-5 wbc/hpf (0-1) URINE EPITHELIAL CELLS 1-3 EPI/hpf (0-5) URINE BACTERIA MODERATE (2+ TO 3+) (NONE SEEN) URINE COMMENT CULTURE INDICATED URINE CULTURES ARE SET-UP BASED ON THE FOLLOWING CRITERIA:POSITIVE NITRITEPOSITIVE LEUKOCYTE ESTERASEGREATER THAN 10 WHITE BLOOD CELLSMODERATE (2+) OR GREATER BACTERIA . CLINICAL IMPRESSION Acute urinary tract infection with cystitis. INSTRUCTIONS Your Current Medications: CONTINUE TAKING THE FOLLOWING MEDICATIONS: Alfuzosin HCl ER Oral : Tablet Extended Release 24 Hour 10 mg, 1 tablet daily. BusPIRone HCl Oral : Tablet 10 mg, 2 tablets 2x a day. Carvedilol Oral : Tablet 25 mg, 2 tablets twice daily. Finasteride Oral : Tablet 5 mg, 1 tablet daily. HydrALAZINE HCl Oral : Tablet 10 mg, 1 tablet three times daily. Isosorbide Mononitrate Oral : 30 mg daily. Lisinopril Oral : 40 mg daily. Lovastatin Oral : 40mg daily. Potassium Oral : 10meq 2x a day. Vitamin D Oral : Capsule 1000 unit, 2 capsules daily. Prescription Medications: Levaquin 500 mg: take 1 tab orally every day for 6 days. No refills. Substitution is permissible. (Start on 06/09/17) Follow-up: Follow up with your doctor tomorrow as scheduled. Blood pressure screening was not performed during this visit because the patient has an active diagnosis of hypertension. (Electronically signed by Guillermo Ring Dr. 06/08/2017 7:54)
--- NOTE | 2017-06-08 08:13 | ED MAR SUMMARY ---
..... Medication Administration Record [facility] [address] [place] [address] Patient: LELE DUQUE Visit ID: [id number] 67y, M Weight: 81.6 kg Height/Length: 72 in BMI: 24.4 ALLERGIES: Codeine Given 07:57 06/08/2017 Terry Garcia R.N. Medication Administered: LEVOFLOXACIN [PO], Dose: 500 mg Tablets PO. Medication Ordered: Levofloxacin PO 500 mg (NOW).
--- NOTE | 2017-06-08 08:13 | ED DISCHARGE INSTRUCTIONS ---
Patient: LELE DUQUE General Instructions [facility] VisitID: [id number] [place] [address] 67y, M Registration Date/Time: 06/08/2017 Acute urinary tract infection with cystitis. INSTRUCTIONS Your Current Medications: CONTINUE TAKING THE FOLLOWING MEDICATIONS: Alfuzosin HCl ER Oral : Tablet Extended Release 24 Hour 10 mg, 1 tablet daily. BusPIRone HCl Oral : Tablet 10 mg, 2 tablets 2x a day. Carvedilol Oral : Tablet 25 mg, 2 tablets twice daily. Finasteride Oral : Tablet 5 mg, 1 tablet daily. HydrALAZINE HCl Oral : Tablet 10 mg, 1 tablet three times daily. Isosorbide Mononitrate Oral : 30 mg daily. Lisinopril Oral : 40 mg daily. Lovastatin Oral : 40mg daily. Potassium Oral : 10meq 2x a day. Vitamin D Oral : Capsule 1000 unit, 2 capsules daily. Prescription Medications: Levaquin 500 mg: take 1 tab orally every day for 6 days. No refills. Substitution is permissible. (Start on 06/09/17) Follow-up: Follow up with your doctor tomorrow as scheduled. Blood pressure screening was not performed during this visit because the patient has an active diagnosis of hypertension. ADDITIONAL INFORMATION Bladder Infection,Male (Adult) A bladder infection ("cystitis" or "UTI") usually causes a constant urge to urinate, and a burning when passing urine. Urine may be cloudy, smelly or dark. There may be also be pain in the lower abdomen. Cystitis in males is not common. It may be caused by a partial blockage in the urinary system that keeps the bladder from emptying completely. This is most often related to an enlarged prostate gland. Home Care: Drink lots of fluids (at least 6-8 glasses a day). This will flush the bacteria out of your bladder. Avoid sexual intercourse until your symptoms are gone. Avoid caffeine, alcohol, and spicy foods. They could irritate the bladder. A bladder infection is treated with antibiotics. You may also be given Pyridium (generic - phenazopyridine) to reduce burning with urination. This will cause urine to become a bright orange color, which can stain clothing. Follow Up with your doctor or this facility if ALL symptoms have not cleared within five days. It is important to keep your follow up appointment to discuss with your doctor the need for further tests of the urinary tract. Get Prompt Medical Attention if any of the following occur: Fever of 100.4F (38C) or higher, or as directed by your healthcare provider No improvement by the third day of treatment Increasing back or abdominal pain Repeated vomiting; unable to keep medicine down Weakness, dizziness or fainting Levofloxacin Oral tablet What is this medicine? LEVOFLOXACIN (elvin sang ISAEL marte) is a quinolone antibiotic. It is used to treat certain kinds of bacterial infections. It will not work for colds, flu, or other viral infections. How should I use this medicine? Take this medicine by mouth with a full glass of water. Follow the directions on the prescription label. This medicine can be taken with or without food. Take your medicine at regular intervals. Do not take your medicine more often than directed. Do not skip doses or stop your medicine early even if you feel better. Do not stop taking except on your doctor's advice. A special MedGuide will be given to you by the pharmacist with each prescription and refill. Be sure to read this information carefully each time. Talk to your cytotechnologist regarding the use of this medicine in children. While this drug may be prescribed for children as young as 6 months for selected conditions, precautions do apply. What side effects may I notice from receiving this medicine? Side effects that you should report to your doctor or health cna caregiver as soon as possible: -allergic reactions like skin rash or hives, swelling of the face, lips, or tongue -changes in vision -confusion, nightmares or hallucinations -difficulty breathing -irregular heartbeat, chest pain -joint, muscle or tendon pain -pain or difficulty passing urine -persistent headache with or without blurred vision -redness, blistering, peeling or loosening of the skin, including inside the mouth -seizures -unusual pain, numbness, tingling, or weakness -vaginal irritation, discharge Side effects that usually do not require medical attention (report to your doctor or health cna caregiver if they continue or are bothersome): -diarrhea -dry mouth -headache -stomach upset, nausea -trouble sleeping What may interact with this medicine? Do not take this medicine with any of the following medications: - arsenic trioxide - chloroquine - droperidol - medicines for irregular heart rhythm like amiodarone, disopyramide, dofetilide, flecainide, quinidine, procainamide, sotalol - some medicines for depression or mental problems like phenothiazines, pimozide, and ziprasidone This medicine may also interact with the following medications: - amoxapine -antacids - cisapride - dairy products - didanosine (ddI) buffered tablets or powder - haloperidol - multivitamins -NSAIDS, medicines for pain and inflammation, like ibuprofen or naproxen - retinoid products like tretinoin or isotretinoin - risperidone - some other antibiotics like clarithromycin or erythromycin - sucralfate - theophylline - warfarin What if I miss a dose? If you miss a dose, take it as soon as you remember. If it is almost time for your next dose, take only that dose. Do not take double or extra doses. Where should I keep my medicine? Keep out of the reach of children. Store at room temperature between 15 and 30 degrees C (59 and 86 degrees F). Keep in a tightly closed container. Throw away any unused medicine after the expiration date. What should I tell my health care provider before I take this medicine? They need to know if you have any of these conditions: cerebral disease irregular heartbeat kidney disease seizure disorder an unusual or allergic reaction to levofloxacin, other antibiotics or medicines, foods, dyes, or preservatives or trying to get breast-feeding What should I watch for while using this medicine? Tell your doctor or health cna caregiver if your symptoms do not improve or if they get worse. Drink several glasses of water a day and cut down on drinks that contain caffeine. You must not get dehydrated while taking this medicine. You may get drowsy or dizzy. Do not drive, use machinery, or do anything that needs mental alertness until you know how this medicine affects you. Do not sit or stand up quickly, especially if you are an older patient. This reduces the risk of dizzy or fainting spells. This medicine can make you more sensitive to the sun. Keep out of the sun. If you cannot avoid being in the sun, wear protective clothing and use a sunscreen. Do not use sun lamps or tanning beds/booths. Contact your doctor if you get a sunburn. If you are a diabetic monitor your blood glucose carefully. If you get an unusual reading stop taking this medicine and call your doctor right away. Do not treat diarrhea with [id number] products. Contact your doctor if you have diarrhea that lasts more than 2 days or if the diarrhea is severe and watery. Avoid antacids, calcium, iron, and zinc products for 2 hours before and 2 hours after taking a dose of this medicine. You have been given the following additional information: Bladder Infection, Male (Adult) Levofloxacin Oral tablet (Electronically signed by Guillermo Ring Dr. 06/08/2017 7:54)
--- NOTE | 2017-06-08 08:13 | ED MAR SUMMARY ---
..... Medication Administration Record [facility] [address] [place] [address] Patient: LELE DUQUE Visit ID: [id number] 67y, M Weight: 81.6 kg Height/Length: 72 in BMI: 24.4 ALLERGIES: Codeine Given 07:57 06/08/2017 Terry Garcia R.N. Medication Administered: LEVOFLOXACIN [PO], Dose: 500 mg Tablets PO. Medication Ordered: Levofloxacin PO 500 mg (NOW).
--- NOTE | 2017-06-08 08:13 | ED MED RECONCILIATION SUMMARY ---
Patient: LELE DUQUE Medication Reconciliation Report [facility] VisitID: [id number] [address] [place] [address] 67y, M Registration Date/Time: 06/08/2017 Weight: 81.6 kg Height/Length: 72 in. BMI: 24.4 ALLERGIES: Codeine The patient's Home Medications are listed below: CONTINUE TAKING THE FOLLOWING MEDICATIONS: Alfuzosin HCl ER Oral (10 mg) 1 tablet, daily BusPIRone HCl Oral (10 mg) 2 tablets, 2x a day Carvedilol Oral (25 mg) 2 tablets, twice daily Finasteride Oral (5 mg) 1 tablet, daily HydrALAZINE HCl Oral (10 mg) 1 tablet, three times daily Isosorbide Mononitrate Oral 30 mg, daily Lisinopril Oral 40 mg, daily Lovastatin Oral 40mg, daily Potassium Oral 10meq, 2x a day Vitamin D Oral (1000 unit) 2 capsules, daily The source(s) of the original Home Medication information: patient's family member patient The following Medications were given to the patient in the Emergency Department: Levofloxacin [PO] PO 500 mg, administered: 06/08/2017 7:57:00 AM The following Medications were prescribed to the patient: Levaquin 500 mg: take 1 tab orally every day for 6 days. No refills. Substitution is permissible.(Start on 06/09/17) -- Guillermo Ring Dr.
--- NOTE | 2017-06-08 08:13 | ED MED RECONCILIATION SUMMARY ---
Patient: LELE DUQUE Medication Reconciliation Report [facility] VisitID: [id number] [address] [place] [address] 67y, M Registration Date/Time: 06/08/2017 Weight: 81.6 kg Height/Length: 72 in. BMI: 24.4 ALLERGIES: Codeine The patient's Home Medications are listed below: CONTINUE TAKING THE FOLLOWING MEDICATIONS: Alfuzosin HCl ER Oral (10 mg) 1 tablet, daily BusPIRone HCl Oral (10 mg) 2 tablets, 2x a day Carvedilol Oral (25 mg) 2 tablets, twice daily Finasteride Oral (5 mg) 1 tablet, daily HydrALAZINE HCl Oral (10 mg) 1 tablet, three times daily Isosorbide Mononitrate Oral 30 mg, daily Lisinopril Oral 40 mg, daily Lovastatin Oral 40mg, daily Potassium Oral 10meq, 2x a day Vitamin D Oral (1000 unit) 2 capsules, daily The source(s) of the original Home Medication information: patient's family member patient The following Medications were given to the patient in the Emergency Department: Levofloxacin [PO] PO 500 mg, administered: 06/08/2017 7:57:00 AM The following Medications were prescribed to the patient: Levaquin 500 mg: take 1 tab orally every day for 6 days. No refills. Substitution is permissible.(Start on 06/09/17) -- Guillermo Ring Dr.
--- NOTE | 2017-06-08 08:13 | ED DISCHARGE INSTRUCTIONS ---
Patient: LELE DUQUE General Instructions [facility] VisitID: [id number] [place] [address] 67y, M Registration Date/Time: 06/08/2017 Acute urinary tract infection with cystitis. INSTRUCTIONS Your Current Medications: CONTINUE TAKING THE FOLLOWING MEDICATIONS: Alfuzosin HCl ER Oral : Tablet Extended Release 24 Hour 10 mg, 1 tablet daily. BusPIRone HCl Oral : Tablet 10 mg, 2 tablets 2x a day. Carvedilol Oral : Tablet 25 mg, 2 tablets twice daily. Finasteride Oral : Tablet 5 mg, 1 tablet daily. HydrALAZINE HCl Oral : Tablet 10 mg, 1 tablet three times daily. Isosorbide Mononitrate Oral : 30 mg daily. Lisinopril Oral : 40 mg daily. Lovastatin Oral : 40mg daily. Potassium Oral : 10meq 2x a day. Vitamin D Oral : Capsule 1000 unit, 2 capsules daily. Prescription Medications: Levaquin 500 mg: take 1 tab orally every day for 6 days. No refills. Substitution is permissible. (Start on 06/09/17) Follow-up: Follow up with your doctor tomorrow as scheduled. Blood pressure screening was not performed during this visit because the patient has an active diagnosis of hypertension. ADDITIONAL INFORMATION Bladder Infection,Male (Adult) A bladder infection ("cystitis" or "UTI") usually causes a constant urge to urinate, and a burning when passing urine. Urine may be cloudy, smelly or dark. There may be also be pain in the lower abdomen. Cystitis in males is not common. It may be caused by a partial blockage in the urinary system that keeps the bladder from emptying completely. This is most often related to an enlarged prostate gland. Home Care: Drink lots of fluids (at least 6-8 glasses a day). This will flush the bacteria out of your bladder. Avoid sexual intercourse until your symptoms are gone. Avoid caffeine, alcohol, and spicy foods. They could irritate the bladder. A bladder infection is treated with antibiotics. You may also be given Pyridium (generic - phenazopyridine) to reduce burning with urination. This will cause urine to become a bright orange color, which can stain clothing. Follow Up with your doctor or this facility if ALL symptoms have not cleared within five days. It is important to keep your follow up appointment to discuss with your doctor the need for further tests of the urinary tract. Get Prompt Medical Attention if any of the following occur: Fever of 100.4F (38C) or higher, or as directed by your healthcare provider No improvement by the third day of treatment Increasing back or abdominal pain Repeated vomiting; unable to keep medicine down Weakness, dizziness or fainting Levofloxacin Oral tablet What is this medicine? LEVOFLOXACIN (elvin sang ISAEL marte) is a quinolone antibiotic. It is used to treat certain kinds of bacterial infections. It will not work for colds, flu, or other viral infections. How should I use this medicine? Take this medicine by mouth with a full glass of water. Follow the directions on the prescription label. This medicine can be taken with or without food. Take your medicine at regular intervals. Do not take your medicine more often than directed. Do not skip doses or stop your medicine early even if you feel better. Do not stop taking except on your doctor's advice. A special MedGuide will be given to you by the pharmacist with each prescription and refill. Be sure to read this information carefully each time. Talk to your filter washer regarding the use of this medicine in children. While this drug may be prescribed for children as young as 6 months for selected conditions, precautions do apply. What side effects may I notice from receiving this medicine? Side effects that you should report to your doctor or health managed care analyst as soon as possible: -allergic reactions like skin rash or hives, swelling of the face, lips, or tongue -changes in vision -confusion, nightmares or hallucinations -difficulty breathing -irregular heartbeat, chest pain -joint, muscle or tendon pain -pain or difficulty passing urine -persistent headache with or without blurred vision -redness, blistering, peeling or loosening of the skin, including inside the mouth -seizures -unusual pain, numbness, tingling, or weakness -vaginal irritation, discharge Side effects that usually do not require medical attention (report to your doctor or health managed care analyst if they continue or are bothersome): -diarrhea -dry mouth -headache -stomach upset, nausea -trouble sleeping What may interact with this medicine? Do not take this medicine with any of the following medications: - arsenic trioxide - chloroquine - droperidol - medicines for irregular heart rhythm like amiodarone, disopyramide, dofetilide, flecainide, quinidine, procainamide, sotalol - some medicines for depression or mental problems like phenothiazines, pimozide, and ziprasidone This medicine may also interact with the following medications: - amoxapine -antacids - cisapride - dairy products - didanosine (ddI) buffered tablets or powder - haloperidol - multivitamins -NSAIDS, medicines for pain and inflammation, like ibuprofen or naproxen - retinoid products like tretinoin or isotretinoin - risperidone - some other antibiotics like clarithromycin or erythromycin - sucralfate - theophylline - warfarin What if I miss a dose? If you miss a dose, take it as soon as you remember. If it is almost time for your next dose, take only that dose. Do not take double or extra doses. Where should I keep my medicine? Keep out of the reach of children. Store at room temperature between 15 and 30 degrees C (59 and 86 degrees F). Keep in a tightly closed container. Throw away any unused medicine after the expiration date. What should I tell my health care provider before I take this medicine? They need to know if you have any of these conditions: cerebral disease irregular heartbeat kidney disease seizure disorder an unusual or allergic reaction to levofloxacin, other antibiotics or medicines, foods, dyes, or preservatives or trying to get breast-feeding What should I watch for while using this medicine? Tell your doctor or health managed care analyst if your symptoms do not improve or if they get worse. Drink several glasses of water a day and cut down on drinks that contain caffeine. You must not get dehydrated while taking this medicine. You may get drowsy or dizzy. Do not drive, use machinery, or do anything that needs mental alertness until you know how this medicine affects you. Do not sit or stand up quickly, especially if you are an older patient. This reduces the risk of dizzy or fainting spells. This medicine can make you more sensitive to the sun. Keep out of the sun. If you cannot avoid being in the sun, wear protective clothing and use a sunscreen. Do not use sun lamps or tanning beds/booths. Contact your doctor if you get a sunburn. If you are a diabetic monitor your blood glucose carefully. If you get an unusual reading stop taking this medicine and call your doctor right away. Do not treat diarrhea with [id number] products. Contact your doctor if you have diarrhea that lasts more than 2 days or if the diarrhea is severe and watery. Avoid antacids, calcium, iron, and zinc products for 2 hours before and 2 hours after taking a dose of this medicine. You have been given the following additional information: Bladder Infection, Male (Adult) Levofloxacin Oral tablet (Electronically signed by Guillermo Ring Dr. 06/08/2017 7:54)
== END 2017-06-08 08:04 | disposition home or self-care (01) ==
LOC: ED SRH 06:59
DX: N30.90 Cystitis, unspecified without hematuria (principal); E78.5 Hyperlipidemia, unspecified; I10 Essential (primary) hypertension; Z79.899 Other long term (current) drug therapy; Z88.5 Allergy status to narcotic agent
CPT/HCPCS: 90004; 90469